=== PATIENT | female | born 1980 | race Caucasian/White ===

== ENCOUNTER 2016-09-16 08:40 | Emergency (ER) | payer OTHER | END 2016-09-16 10:47 | disposition home or self-care (01) | LOC: FER 08:40 | DX: S29.012A Strain of muscle and tendon of back wall of thorax, initial encounter (principal); R07.81 Pleurodynia; Z88.5 Allergy status to narcotic agent; V49.40XA Driver injured in collision with unspecified motor vehicles in traffic accident, initial encounter; Y92.410 Unspecified street and highway as the place of occurrence of the external cause | CPT/HCPCS: 71101; 72072; J1885 ==

== ENCOUNTER 2021-11-03 06:54 | Emergency (ER) | payer OTHER | END 2021-11-03 08:47 | disposition home or self-care (01) | LOC: FER 06:54 | DX: J20.9 Acute bronchitis, unspecified (principal); I10 Essential (primary) hypertension; Z88.5 Allergy status to narcotic agent; Z79.899 Other long term (current) drug therapy | CPT/HCPCS: 71046 ==